=== PATIENT | female | born 1955 | race Hispanic/Latino ===

== ENCOUNTER 2016-06-13 11:31 | Emergency (ER) | payer BC ==
[2016-06-13] MEDS ORDERED: TORADOL IV ONE (13:26)
[2016-06-13] MEDS ORDERED: ZOFRAN IV ONE (13:26)
--- NOTE | 2016-06-13 13:32 | Emergency Department Report ---
HPI - General Chief Complaint: Dyspnea/Respdistress Time Seen by Provider: 06/13/16 13:14 - HPI HPI: Room 20 The patient is a 60-year-old female presenting with a chief complaint of shortness of breath. The patient states her symptoms began this morning with difficulty breathing. Patient denies chest pain but does admit to discomfort when she coughs. The patient states her cough has been nonproductive. Patient denies any history of fever. The patient states she feels "okay" now that she has been administered O2. The patient states she had left shoulder repair performed by Dr. Turner at [facility] 2 days ago. The patient states the hydrocodone and/or oxycodone she was prescribed makes her nauseous. The patient states her shoulder pain is currently an 8.5/10 Location: Lungs, see above Duration: [see above] Quality: Shortness of breath Severity: Moderate Modifying factors: [see above] Context: [see above] Mode of transportation: [not driving] ED Past Medical Hx - Past Medical History Hx Hypertension: Yes Additional medical history: fibromyalgia. sciatica - Surgical History Past Surgical History?: No Additional Surgical History: Thyroid surgery, hysterectomy, left shoulder repair 06/11/2016 - Family History Family history: no significant - Social History Smoking Status: Never Smoker Substance Use Type: None - Medications Home Medications: Home Medications Medication Instructions Recorded Confirmed Last Taken Type Gabapentin 7 cap PO HS 05/25/15 06/13/16 05/25/15 History Irbesartan/Hydrochlorothiazide 1 tab PO DAILY 05/25/15 06/13/16 05/25/15 History amLODIPine [Norvasc] 10 mg PO QDAY tablet 05/27/15 06/13/16 Unknown Rx Cephalexin [Keflex] 500 mg PO Q6HR 06/13/16 06/13/16 Unknown History HYDROcodone/APAP 7.5-325 [[place] 1 each PO Q6HR PRN 06/13/16 06/13/16 Unknown History 7.5/325] Ibuprofen [Motrin] 800 mg PO Q8HR PRN 06/13/16 06/13/16 Unknown History Ondansetron [Zofran ODT TAB] 8 mg PO Q8HR #20 tab.rapdis 06/13/16 Unknown Rx Promethazine [Phenergan TAB] 25 mg PO Q6HR PRN 06/13/16 06/13/16 Unknown History traMADol [Ultram] 50 mg PO Q6HR PRN #14 tablet 06/13/16 Unknown Rx ED Review of Systems ROS: Stated complaint: SOB Other details as noted in HPI Comment: All other systems reviewed and negative Constitutional: denies: chills, fever Eyes: denies: eye pain, eye discharge, vision change ENT: denies: ear pain, throat pain Respiratory: shortness of breath Cardiovascular: denies: chest pain, palpitations Endocrine: no symptoms reported Gastrointestinal: denies: abdominal pain, nausea, diarrhea Genitourinary: denies: urgency, dysuria, discharge Musculoskeletal: arthralgia Skin: denies: rash, lesions Neurological: denies: headache, weakness, paresthesias Psychiatric: denies: anxiety, depression Hematological/Lymphatic: denies: easy bleeding, easy bruising Physical Exam - Physical Exam Vital Signs: Vital Signs 06/13/16 06/13/16 11:53 12:55 Temperature 97.9 F Pulse Rate 74 Respiratory 22 18 Rate Blood Pressure 244/116 O2 Sat by Pulse 96 99 Oximetry Physical Exam: GENERAL: The patient is well-developed well-nourished female lying on stretcher appearing to be in mild discomfort. [] HEENT: Normocephalic. Atraumatic. Extraocular motions are intact. Patient has moist mucous membranes. NECK: Supple. Trachea midline CHEST/LUNGS: Clear to auscultation. There is no respiratory distress noted. HEART/CARDIOVASCULAR: Regular. There is no tachycardia. There is no gallop rub or murmur. ABDOMEN: Abdomen is soft, nontender. Patient has normal bowel sounds. There is no abdominal distention. SKIN: There is no rash. There is no diaphoresis. NEURO: The patient is awake, alert, and oriented. The patient is cooperative. The patient has normal speech MUSCULOSKELETAL: Appropriate postop left shoulder pain ED Course Vital Signs 06/13/16 06/13/16 11:53 12:55 Temperature 97.9 F Pulse Rate 74 Respiratory 22 18 Rate Blood Pressure 244/116 O2 Sat by Pulse 96 99 Oximetry ED Medical Decision Making - Lab Data Result diagrams: 06/13/16 13:21 06/13/16 13:21 Laboratory Tests 06/13/16 06/13/16 06/13/16 13:21 13:21 13:21 WBC 12.8 H RBC 4.26 Hgb 11.6 Hct 36.3 MCV 85 MCH 27 L MCHC 32 RDW 14.8 Plt Count 240 Lymph % (Auto) 18.7 [place] % (Auto) 7.1 Eos % (Auto) 0.6 Baso % (Auto) 0.5 Lymph # 2.4 [place] # 0.9 H Eos # 0.1 Baso # 0.1 Seg Neutrophils % 73.1 H Seg Neutrophils # 9.4 H PT 12.2 INR 0.91 APTT 35.0 Sodium 142 Potassium 4.3 Chloride 100.4 Carbon Dioxide 30 Anion Gap 16 BUN 10 Creatinine 0.5 L Estimated GFR > 60 BUN/Creatinine Ratio 20.00 Glucose 93 Calcium 9.2 Total Creatine Kinase 142 H CK-MB (CK-2) 2.5 CK-MB (CK-2) Rel Index 1.7 Troponin T < 0.010 NT-Pro-B Natriuret Pep 324.1 - Radiology Data Radiology results: report reviewed (CT chest), image reviewed (CT chest) CT chest (read by radiologist)- no evidence for pulmonary embolus. Unremarkable CT chest with contrast. No significant change since 05/26/2015 - Differential Diagnosis atelectasis, PE, pneumonia Critical care attestation.: If time is entered above; I have spent that time in minutes in the direct care of this critically ill patient, excluding procedure time. ED Disposition Clinical Impression: Shortness of breath Disposition: DISCHARGED TO HOME OR SELFCARE Is pt being admited?: No Does the pt Need Aspirin: No Condition: Stable Additional Instructions: Return to the emergency department immediately should you develop worsening symptoms, fever, inability to tolerate food or liquid or any other concerns. Prescriptions: Ondansetron [Zofran ODT TAB] 8 mg PO Q8HR #20 tab.rapdis traMADol [Ultram] 50 mg PO Q6HR PRN #14 tablet PRN Reason: Pain Referrals: PRIMARY CARE, [Primary Care Provider] - 3-5 Days Time of Disposition: 16:16
[2016-06-13 13:34] LABS: Basophils % (Auto) 0.5 % (0.0-1.8); Eosinophils % (Auto) 0.6 % (0.0-4.3); Hematocrit 36.3 % (30.3-42.9); Hemoglobin 11.6 gm/dl (10.1-14.3); Mean Corpuscular HGB Conc 32 % (30-34); Mean Corpuscular Hemoglobin 27 pg (28-32); Mean Corpuscular Volume 85 fl (79-97); Platelet Count 240 K/mm3 (140-440); Red Blood Count 4.26 M/mm3 (3.65-5.03); Red Cell Distribution Width 14.8 % (13.2-15.2); White Blood Count 12.8 K/mm3 (4.5-11.0)
[2016-06-13 13:51] LABS: INR 0.91 (0.87-1.13)
[2016-06-13 13:58] LABS: Creatine Kinase MB 2.5 ng/mL (0.0-4.0)
[2016-06-13] MEDS ORDERED: NACL ONE (13:58)
[2016-06-13 13:59] LABS: Blood Urea Nitrogen 10 mg/dL (7-17); Calcium 9.2 mg/dL (8.4-10.2); Carbon Dioxide 30 mmol/L (22-30); Creatine Kinase 142 units/L (30-135); Glucose 93 mg/dL (65-100)
[2016-06-13 14:00] LABS: Anion Gap 16 mmol/L; Chloride 100.4 mmol/L (98-107); Potassium 4.3 mmol/L (3.6-5.0); Sodium 142 mmol/L (137-145)
--- NOTE | 2016-06-13 14:50 | Cat Scan Report ---
CTA CHEST: History: Shortness of breath. Technique: Helical CT following IV contrast. Pulmonary embolus protocol. Sagittal and coronal reformatted images. Rotational MIP images. Findings: Contrast bolus is satisfactory. No pulmonary embolus is identified. The thyroid gland, tracheobronchial tree, esophagus, heart, pericardium, mediastinal vessels, lung grimaldo and bony thorax are unremarkable. Impression: No evidence for pulmonary embolus. Unremarkable CT chest with contrast. No significant change since 05/26/15.
[2016-06-13 15:59] VITALS: BP 169/82
== END 2016-06-13 16:25 | disposition home or self-care (01) ==
LOC: ED 11:31
DX: R06.02 Shortness of breath (principal); I10 Essential (primary) hypertension
CPT/HCPCS: 36415; 71275; 80048; 82550; 82553; 83880; 84484; 85025; 85610; 85730; 93005; 93010; 96374; 96375; 99284; J1885; J2405; Q9967